=== PATIENT | male | born 1945 | race Caucasian/White ===

== ENCOUNTER 2017-03-19 11:44 | Day surgery (SDC) | payer MEDICARE, OTHER ==
[2017-03-19] MEDS ORDERED: PROPOFOL INJ 200 MG/20 ML VIAL IV ONE ×2 (14:02→15:15)
--- NOTE | 2017-03-19 15:28 | Operative Report ---
Operative Report DATE OF SURGERY: 03/19/17 Operative Report: The risks benefits and alternatives of the procedure explained to the patient in detail and informed consent is obtained.A GIF Olympus video scope was inserted into the patient's mouth and hypopharynx, the esophagus is identified intubated and insufflated, the scope was then advanced through the esophagus stomach and duodenum, retroflexion maneuver is done, the esophagus stomach and first and second portions of the duodenum examined PREOPERATIVE DIAGNOSIS: Dysphagia, abdominal bloating POSTOPERATIVE DIAGNOSIS: Status post Linsey fundoplication. Gastritis. Esophageal dilatation [address] [place] across the guidewire OPERATION: EGD with dilation. EGD with biopsy SURGEON: CHAD PRASAD ANESTHESIA: LMAC TISSUE REMOVED OR ALTERED: Gastric mucosal specimen obtained to rule out Helicobacter pylori COMPLICATIONS: None. ESTIMATED BLOOD LOSS: None. INTRAOPERATIVE FINDINGS: As noted above. PROCEDURE: Patient tolerated procedure well. No immediate postprocedure complications are noted. Patient discharged in good condition. Discharge date 03/19/2017 Discharge diet: Regular. Discharge activity: Regular. 2-3 week follow-up to discuss findings Patient is instructed to call the office or proceed to the emergency room should there be any further problems or questions. We will await pathology.
[2017-03-19] MEDS ORDERED: DIPHENHYDRAMINE HCL 50 MG/ML VIAL IV PRN (15:29)
[2017-03-19] MEDS ORDERED: FENTANYL CITRATE INJ/PF 100 MCG/2 ML AMPUL IV PRN ×3 (15:29)
[2017-03-19] MEDS ORDERED: PROMETHAZINE HCL INJ 25 MG/1 ML VIAL IV PRN ×2 (15:29→16:00)
[2017-03-19] MEDS ORDERED: DEXTROSE 5%-1/2 NORMAL SALINE 1,000 ML IV PRN (15:42)
[2017-03-19] MEDS ORDERED: SIMETHICONE 80 MG TAB.CHEW PO PRN (16:00)
[2017-03-19] MEDS ORDERED: ACETAMINOPHEN 325 MG TABLET PO PRN (16:00)
[2017-03-19 17:04] VITALS: BP 123/62
== END 2017-03-19 17:00 | disposition home or self-care (01) ==
LOC: OROUT 11:44
PROVIDERS: ATTEND Internal Medicine Gastroenterology
PROC: 0DB68ZX Excision of Stomach, Via Natural or Artificial Opening Endoscopic, Diagnostic (ICD-10-PCS; principal; 2017-03-19 14:00)
DX: K29.50 Unspecified chronic gastritis without bleeding (principal); K22.2 Esophageal obstruction; R13.10 Dysphagia, unspecified
CPT/HCPCS: 43239; 43248; 88305 ×2; J2704; 731

== ENCOUNTER 2018-07-08 05:56 | Emergency (ER) | payer MEDICARE, OTHER ==
[2018-07-08 06:03] VITALS: BP 180/84
--- NOTE | 2018-07-08 06:45 | ER Document Report ---
ED General - General Chief Complaint: Hand Swelling Stated Complaint: HAND INJURY Time Seen by Provider: 07/08/18 06:17 TRAVEL OUTSIDE OF THE [place] IN LAST 30 DAYS: No - HPI Notes: Patient is a 72-year-old, [id number] male, who presents emergency department for evaluation of left hand swelling. He believes he was stung by a hornet, but notes he was stung by something. He was stung on the medial aspect of the second finger. He states that this happened on Saturday. The swelling is gone down somewhat, but it still continues to hurt. Denies any numbness or tingling. His pain is exacerbated by movement of any sort. He has had slight improvement with ice. He denies any chest pain, swelling in his mouth or tongue, difficulty breathing. No rashes. - Related Data Allergies/Adverse Reactions: No Known Allergies Allergy (Verified 03/19/17 12:52) Past Medical History - General Information source: Patient - Social History Smoking Status: Former Smoker Frequency of alcohol use: Occasional Family History: Reviewed & Not Pertinent Patient has suicidal ideation: No Patient has homicidal ideation: No - Past Medical History Cardiac Medical History: Denies: Hx Coronary Artery Disease, Hx Heart Attack, Hx Hypertension Pulmonary Medical History: Denies: Hx Asthma, Hx Bronchitis, Hx COPD, Hx Pneumonia Neurological Medical History: Denies: Hx Cerebrovascular Accident, Hx Seizures Renal/ Medical History: Denies: Hx Peritoneal Dialysis GI Medical History: Reports: Hx Hiatal Hernia - Status post Linsey fundoplication Musculoskeletal Medical History: Denies Hx Arthritis Psychiatric Medical History: Denies: Hx Depression Past Surgical History: Reports: Hx Abdominal Surgery - Patient had a Linsey fundoplication 5 years ago., Hx Bowel Surgery - bowel obstruction x2. Mark - Immunizations Hx Diphtheria, Pertussis, Tetanus Vaccination: Yes Hx Pneumococcal Vaccination: 02/11/14 Review of Systems - Review of Systems Constitutional: No symptoms reported EENT: No symptoms reported Cardiovascular: No symptoms reported Respiratory: No symptoms reported Gastrointestinal: No symptoms reported Musculoskeletal: See HPI Skin: See HPI Neurological/Psychological: No symptoms reported Physical Exam - Vital signs Vitals: Temp Pulse Resp BP Pulse Ox 97.8 F 58 L 17 180/84 H 96 07/08/18 06:00 07/08/18 06:00 07/08/18 06:00 07/08/18 06:00 07/08/18 06:00 - Notes Notes: Pleasant 72-year-old gentleman, appears of stated age, no acute distress. Examination is limited to the area of chief complaint. Examination of the left hand yields a moderate amount of swelling. I do not appreciate any stinger in the affected area. Capillary refill is still brisk. He is wearing his watch on that wrist, it is slightly constricting. Radial pulses 2+. Patient has full passive range of motion of all fingers and thumb, although it does elicit some pain particularly in the second digit. Active range of motion is limited only by the physical barrier of his swelling, moderately impacted by pain. Course - Re-evaluation Re-evalutation: 07/08/18 06:45 Patient presents emergency department for evaluation of left hand swelling after an insect sting. The patient was instructed that he should do everything possible to minimize swelling. He is to keep it elevated. He is told not to wear his watch. He is told to continue to ice it multiple times daily. We will start him on steroids. He is told to take Tylenol as needed for pain. He was told to practice range of motion, any sort of movement would continue to help with the swelling. He voiced understanding to this as well. We did discuss compartment syndrome, the symptoms associated, and the symptoms that should prompt him to immediately return. He voiced understanding to this and the patient was discharged. - Vital Signs Vital signs: Temp Pulse Resp BP Pulse Ox 97.8 F 58 L 17 180/84 H 96 07/08/18 06:00 07/08/18 06:00 07/08/18 06:00 07/08/18 06:00 07/08/18 06:00 Discharge - Discharge Clinical Impression: Swelling of left hand, Hymenoptera envenomation Condition: Stable Disposition: HOME, SELF-CARE Instructions: Swollen Insect Bite or Sting ([facility]) Additional Instructions: Keep hand elevated, continue to ice multiple times a day. Do not wear your watch. If you develop increased pain, numbness, worsened swelling, or any other new or concerning symptoms, return immediately to the emergency department for evaluation. Your blood pressure was elevated here today. Please follow-up with primary care, as referred. Increased blood pressure increases your chances of heart attack, stroke, and even . Forms: Elevated Blood Pressure Referrals: [facility] [NO LOCAL MD] - Follow up as needed BURAK ALLEN MD [ACTIVE STAFF] - Follow up as needed
== END 2018-07-08 07:03 | disposition home or self-care (01) ==
LOC: ER 05:56
DX: M79.89 Other specified soft tissue disorders (principal); T63.451A Toxic effect of venom of hornets, accidental (unintentional), initial encounter; Y92.9 Unspecified place or not applicable
CPT/HCPCS: 99281

== ENCOUNTER 2019-11-07 04:38 | Emergency (ER) | payer MEDICARE, OTHER ==
[2019-11-07] MEDS ORDERED: MORPHINE SULFATE 10 MG/ML INJ IV PRN (04:51)
[2019-11-07] MEDS ORDERED: ONDANSETRON HCL INJ/PF 4 MG/2 ML SDV IV ONE (04:51)
[2019-11-07 05:23] LABS: ABSOLUTE EOSINOPHILS # (AUTO) 0.1 10^3/uL (0.0-0.6); ABSOLUTE LYMPHOCYTES (AUTO) 1.3 10^3/uL (0.5-4.7); ABSOLUTE MONOCYTES (AUTO) 0.6 10^3/uL (0.1-1.4); ABSOLUTE NEUT (AUTO) 5.1 10^3/uL (1.7-8.2); BASOPHILS % (AUTO) 0.4 % (0-2); EOSINOPHILS % (AUTO) 1.3 % (0-6); HEMATOCRIT 46.8 % (37.9-51.0); HEMOGLOBIN 16.7 g/dL (13.5-17.0); LYMPHOCYTES % (AUTO) 18.1 % (13-45); MEAN CORPUSCULAR HEMOGLOBIN 35.9 pg (27.0-33.4); MEAN CORPUSCULAR HGB CONC 35.8 g/dL (32.0-36.0); MEAN CORPUSCULAR VOLUME 101 fl (80-97); MONOCYTES % (AUTO) 7.9 % (3-13); PLATELET COUNT 143 10^3/uL (150-450); RED BLOOD COUNT 4.66 10^6/uL (4.35-5.55); RED CELL DISTRIBUTION WIDTH 14.3 % (11.5-14.0); SEGMENTED NEUTROPHILS % (AUTO) 72.3 % (42-78); TOTAL CELLS COUNTED % (AUTO) 100 %; WHITE BLOOD COUNT 7.1 10^3/uL (4.0-10.5)
[2019-11-07] MEDS ORDERED: NORMAL SALINE 1000 ML 1,000 ML IV ONE (05:23)
[2019-11-07] MEDS ORDERED: KETOROLAC TROMETHAMINE INJ/PF 30 MG/1 ML SDV IV ONE (05:23)
--- NOTE | 2019-11-07 05:40 | ER Document Report ---
ED GI/ - General Chief Complaint: Possible Kidney Stone Stated Complaint: FLANK PAIN Time Seen by Provider: 11/07/19 05:20 Notes: Patient is a 74-year-old male who presents emergency department with a chief complaint of right flank pain. Patient states that his pain started about an hour and half prior to arrival. He describes his pain as a sharp, stabbing pain in his right. Patient states that he does not have history of kidney stones and has never felt this pain before. Patient states that he has history of "bowel blockages in the past." Patient has history of a Niesen. States that this does not feel like this. Denies any nausea or vomiting. TRAVEL OUTSIDE OF THE [place] IN LAST 30 DAYS: No - Related Data Allergies/Adverse Reactions: No Known Allergies Allergy (Verified 03/19/17 12:52) Past Medical History - Social History Smoking Status: Never Smoker Family History: Reviewed & Not Pertinent - Past Medical History Cardiac Medical History: Denies: Hx Coronary Artery Disease, Hx Heart Attack, Hx Hypertension Pulmonary Medical History: Denies: Hx Asthma, Hx Bronchitis, Hx COPD, Hx Pneumonia Neurological Medical History: Denies: Hx Cerebrovascular Accident, Hx Seizures Renal/ Medical History: Denies: Hx Peritoneal Dialysis GI Medical History: Reports: Hx Hiatal Hernia - Status post Linsey fundoplication Musculoskeletal Medical History: Denies Hx Arthritis Psychiatric Medical History: Denies: Hx Depression Past Surgical History: Reports: Hx Abdominal Surgery - Patient had a Linsey fundoplication 5 years ago., Hx Bowel Surgery - bowel obstruction x2. Mark - Immunizations Hx Diphtheria, Pertussis, Tetanus Vaccination: Yes Hx Pneumococcal Vaccination: 02/11/14 Review of Systems - Review of Systems Notes: REVIEW OF SYSTEMS: CONSTITUTIONAL : Denies recent illness. Denies recent unintentional weight loss. Denies fever, chills, or sweats. EENT: Denies eye, ear, throat, or mouth pain, discharge, or symptoms. Denies nasal or sinus congestion. CARDIOVASCULAR: Denies chest pain. RESPIRATORY: Denies shortness of breath, cough, congestion, difficulty breathing, or wheezing. GASTROINTESTINAL: Denies nausea, vomiting, and diarrhea. Denies abdominal pain. Denies constipation. GENITOURINARY: Denies difficulty urinating, burning, blood in urine, urgency or frequency. MUSCULOSKELETAL: See HPI. Denies joint pain or swelling. SKIN: Denies rash, itchiness, or lesions HEMATOLOGIC : Denies easy bruising or bleeding. LYMPHATIC: Denies swollen, painful, enlarged glands. NEUROLOGICAL: Denies no numbness or tingling denies weakness. Denies headache. Denies altered mental status. Denies alteration in speech. PSYCHIATRIC: Denies stress, anxiety, alteration in sleep patterns, or depression. All other systems reviewed and negative. Physical Exam - Vital signs Vitals: Temp Pulse Resp Pulse Ox 97.6 F 75 19 100 11/07/19 05:05 11/07/19 05:05 11/07/19 05:05 11/07/19 05:05 - Notes Notes: PHYSICAL EXAMINATION: GENERAL: Appears well, healthy, well-nourished, no acute distress. HEAD: Normocephalic, atraumatic. EYES: PERRL, conjunctiva normal, all extraocular movements intact, sclera nonicteric ENT: Moist mucous membranes. NECK: Supple, no noticeable swelling, redness, rash. Normal range of motion. LUNGS: Equal breath sounds bilaterally and clear to auscultation. No wheezes rales or rhonchi. CARDIOVASCULAR: S1-S2, regular rate, regular rhythm. Radial pulses 2+, normal. ABDOMEN: Normoactive bowel sounds. Soft, nontender, no guarding, no rebound tenderness, and no masses palpated. EXTREMITIES: Normal strength and range of motion, no pitting or edema. No cyanosis. NEUROLOGICAL: Moves all extremities upon command. Strength 5/5 in all extremities. PSYCH: Normal mood, normal affect. SKIN: Warm, dry. No rash, lesions, ulcerations noted. Normal skin turgor. BACK: Right CVA tenderness noted. Course - Re-evaluation Re-evalutation: 11/07/19 07:27 Presents with findings consistent with acute nephrolithiasis. Urinalysis does show hematuria. Laboratory otherwise unremarkable. Pain was able to be controlled here in the emergency department. Patient is tolerating oral intake. Clinical history is not consistent with an acute abdominal aneurysm or dissection, MD, or pulmonary embolus. Urinalysis does not show findings consistent with an infected stone. Vitals have remained within normal limits. Patient will be discharged with recommendations to follow-up with urology, pain medications, and return precautions. They are in agreement with this plan and verbalized indications return to emergency department. - Vital Signs Vital signs: Temp Pulse Resp BP Pulse Ox 97.6 F 75 19 100 11/07/19 05:05 11/07/19 05:05 11/07/19 05:05 11/07/19 05:05 - Laboratory Result Diagrams: 11/07/19 05:05 11/07/19 05:05 Laboratory results interpreted by me: 11/07/19 11/07/19 11/07/19 05:05 05:05 07:15 MCV 101 H MCH 35.9 H RDW 14.3 H Plt Count 143 L Glucose 144 H Urine Protein 100 H Urine Blood MODERATE H Discharge - Discharge Clinical Impression: Flank pain, acute, Kidney stone on left side Disposition: HOME, SELF-CARE Additional Instructions: Your symptoms should improve over the course of the next one week. If you continue to have pain for greater than one week or your pain is not controlled with the pain medications that you have been sent home with you need to return to the emergency department. Please also return if you develop fever, persistent vomiting, or any other symptoms that are concerning to you. You should take ibuprofen 600 mg every 6 hours and use the Percocet as prescribed only for pain not controlled by ibuprofen. You are also been sent home with a medication called Flomax to help pass the stone. You've been given Zofran to assist with nausea. Please follow-up with urology in the next 2-3 days. Prescriptions: Tamsulosin HCl [Flomax 0.4 mg Cap.sr] 0.4 mg PO DAILY #7 cap.sr.24h Oxycodone HCl/Acetaminophen [Percocet 5-325 mg Tablet] 1 - 2 tab PO Q4H PRN #25 tablet PRN Reason: Ondansetron [Zofran Odt 4 mg Tablet] 1 - 2 tab PO Q4H PRN #15 tab.rapdis PRN Reason: For Nausea/Vomiting Referrals: [facility] [Provider Group] - Follow up in 3-5 days
[2019-11-07 05:44] LABS: ALBUMIN 4.5 g/dL (3.5-5.0); ALKALINE PHOSPHATASE 55 U/L (38-126); ANION GAP 12 (5-19); ASPARTATE AMINO TRANSFERASE 28 U/L (17-59); BILIRUBIN,DIRECT 0.2 mg/dL (0.0-0.4); BILIRUBIN,TOTAL 1.1 mg/dL (0.2-1.3); BLOOD UREA NITROGEN 14 mg/dL (7-20); CALCIUM 9.6 mg/dL (8.4-10.2); CARBON DIOXIDE 23 mmol/L (22-30); CHLORIDE 106 mmol/L (98-107); GLUCOSE 144 mg/dL (75-110); POTASSIUM 4.2 mmol/L (3.6-5.0); TOTAL PROTEIN 7.3 g/dL (6.3-8.2)
--- NOTE | 2019-11-07 06:41 | RADIOLOGY REPORT (SQ) ---
CT abdomen and pelvis without contrast on 11/07/2019 at 5:44 AM CLINICAL INDICATION: Right-sided back pain TECHNIQUE: Multiple axial images are obtained throughout the abdomen and pelvis without the administration of contrast. This exam was performed according to our departmental dose-optimization program, which includes automated exposure control, adjustment of the mA and/or kV according to patient size and/or use of iterative reconstruction technique. Total DLP is 889.33 mGy*cm. COMPARISON: None FINDINGS: Abdomen: The lung bases are clear. Patient appears to be status post a Linsey fundoplication. There is no significant right hydronephrosis but there is minimal right hydroureter to the level of possible tiny 2 mm stone in the right distal ureter on axial image 88. No other renal or ureteral stones are noted. There is mild fatty infiltration of the liver. The unenhanced solid abdominal organs are otherwise unremarkable. There is no abdominal adenopathy. Vascular calcifications are noted. There is no free fluid or free air within the abdomen. The abdominal portion of the GI tract is unremarkable. Pelvis: There are small bilateral inguinal hernias containing only fat. There is no free fluid in the pelvis. There is no pelvic adenopathy. Pelvic portion of the GI tract is unremarkable. No acute bony anatomy is noted. IMPRESSION: 1. Probable tiny 2 mm minimally obstructing right distal ureteral stone just proximal to the right UVJ by approximately 1 cm. 2. No other acute abnormality.
[2019-11-07 07:47] LABS: APPEARANCE,URINE SLIGHTLY-CLOUDY; BILIRUBIN,URINE NEGATIVE (NEGATIVE); COLOR,URINE YELLOW; GLUCOSE, URINE NEGATIVE (NEGATIVE); KETONES,URINE NEGATIVE (NEGATIVE); LEUKOCYTE ESTERASE,URINE NEGATIVE (NEGATIVE); NITRITE,URINE NEGATIVE (NEGATIVE); PROTEIN,URINE 100 mg/dL (NEGATIVE); URINE SPECIFIC GRAVITY 1.023; UROBILINOGEN,URINE NEGATIVE mg/dL (<2.0)
[2019-11-07 08:34] VITALS: BP 162/88
== END 2019-11-07 08:36 | disposition home or self-care (01) ==
LOC: ER 04:38
DX: N20.0 Calculus of kidney (principal); R10.9 Unspecified abdominal pain; R31.9 Hematuria, unspecified
CPT/HCPCS: 99285; 96361; 96374; 96375; 36415; 83690; 85025; 80053; 81001; 74176; J1885; J2270; J2405; J7030